=== PATIENT | male | born 1965 | race Caucasian/White ===

== ENCOUNTER 2018-12-12 14:21 | Inpatient (IN) ==
[2018-12-12] MEDS ORDERED: *HR* HYDROmorphone (PF) 1 MG/ML SYRINGE IVP ONE ×2 (15:27→18:49)
[2018-12-12] MEDS ORDERED: Dexamethasone 4 MG/ML VIAL IVP ONE (18:49)
[2018-12-12 20:19] LABS: Hematocrit 52.8 % (37.5-50.1); Hemoglobin 17.5 g/dL (12.9-16.9); Immature Platelets 3.3 % (1.1-6.1); Mean Corpuscular HGB Conc 33.1 g/dL (31.6-35.5); Mean Corpuscular Hemoglobin 27.9 pg (28.0-33.3); Mean Corpuscular Volume 84.1 fL (83.0-100.0); Mean Platelet Volume 9.6 fL (9.4-12.4); Red Blood Count 6.28 M/mcL (4.19-5.50); Red Cell Distribution Width 13.1 % (11.5-14.5); White Blood Count 8.8 K/mcL (4.3-11.1)
[2018-12-12 20:41] LABS: BUN/Creatinine Ratio 14 (6-26); Blood Urea Nitrogen 14 mg/dL (6-20); Calcium 9.6 mg/dL (8.6-10.3); Carbon Dioxide 25 mEq/L (23-29); Chloride 102 mEq/L (98-107); Glucose 141 mg/dL (70-105); Osmolality,Calculated 285 (280-300); Potassium 4.5 mEq/L (3.5-5.1); Sodium 136 mEq/L (136-145); eGFR For African Americans > 60 (> 60); eGFR For Non-African Americans > 60 (> 60)
[2018-12-12] MEDS ORDERED: Naloxone 0.4 MG/ML INJ IVP PRN (21:11)
[2018-12-12] MEDS: *HR* HYDROmorphone (PF) 1 MG/ML SYRINGE IVP PRN (23:31)
[2018-12-13] MEDS: *HR* HYDROmorphone (PF) 1 MG/ML SYRINGE IVP PRN ×3 (04:29→12:17)
[2018-12-13] MEDS: *HR* Heparin 5,000 UNIT/ML VIAL SQ SCH ×2 (04:29→17:43)
[2018-12-13 05:57] LABS: Hematocrit 51.3 % (37.5-50.1); Mean Corpuscular HGB Conc 33.1 g/dL (31.6-35.5); Mean Corpuscular Hemoglobin 28.4 pg (28.0-33.3); Mean Corpuscular Volume 85.6 fL (83.0-100.0); Mean Platelet Volume 9.9 fL (9.4-12.4); Platelet Count 281 K/mcL (140-400); Red Blood Count 5.99 M/mcL (4.19-5.50); Red Cell Distribution Width 13.1 % (11.5-14.5); White Blood Count 9.5 K/mcL (4.3-11.1)
[2018-12-13 06:03] LABS: Prothrombin Time 11.1 Seconds (9.4-12.1)
[2018-12-13 06:06] LABS: Activated Partial Thrombo Time 31.7 Seconds (26.0-36.0)
[2018-12-13 06:18] LABS: BUN/Creatinine Ratio 18 (6-26); Blood Urea Nitrogen 18 mg/dL (6-20); Calcium 9.7 mg/dL (8.6-10.3); Carbon Dioxide 25 mEq/L (23-29); Chloride 103 mEq/L (98-107); Glucose 157 mg/dL (70-105); Osmolality,Calculated 289 (280-300); Potassium 4.3 mEq/L (3.5-5.1); Sodium 137 mEq/L (136-145); eGFR For African Americans > 60 (> 60); eGFR For Non-African Americans > 60 (> 60)
[2018-12-13] MEDS ORDERED: *HR* HYDROmorphone 2 MG TABLET PO ONE (23:35)
[2018-12-14] MEDS: *HR* Heparin 5,000 UNIT/ML VIAL SQ SCH ×2 (05:09→17:09)
[2018-12-14] MEDS ORDERED: tiZANidine 4 MG TABLET PO ONE (05:32)
[2018-12-14] MEDS: *HR* OxyCODONE Immed Rel 5 MG TABLET PO PRN ×3 (07:50→22:42)
[2018-12-14] MEDS: predniSONE 20 MG TABLET PO SCH (10:33)
[2018-12-14] MEDS: Ketorolac 15 MG/ML VIAL IVP SCH ×3 (12:12→23:54)
[2018-12-15] MEDS: *HR* Heparin 5,000 UNIT/ML VIAL SQ SCH ×2 (05:25→17:50)
[2018-12-15] MEDS: Ketorolac 15 MG/ML VIAL IVP SCH ×3 (05:25→17:48)
[2018-12-15] MEDS: *HR* OxyCODONE Immed Rel 5 MG TABLET PO PRN (08:37)
[2018-12-15] MEDS: predniSONE 20 MG TABLET PO SCH (08:37)
[2018-12-15] MEDS: Sennosides/Docusate Sodium TABLET PO SCH (21:20)
[2018-12-16] MEDS: Ketorolac 15 MG/ML VIAL IVP SCH ×3 (00:07→11:32)
[2018-12-16] MEDS: *HR* Heparin 5,000 UNIT/ML VIAL SQ SCH ×2 (05:57→18:37)
[2018-12-16] MEDS: predniSONE 20 MG TABLET PO SCH (08:32)
[2018-12-16] MEDS: Sennosides/Docusate Sodium TABLET PO SCH ×2 (08:32→20:58)
[2018-12-16] MEDS ORDERED: Lactulose Oral Soln 20 GM/30 ML UDC PO PRN (14:49)
[2018-12-16] MEDS: *HR* OxyCODONE ER (12 HR) 10 MG TABLET PO SCH (18:37)
[2018-12-16] MEDS: *HR* OxyCODONE Immed Rel 15 MG TABLET PO PRN (20:57)
[2018-12-17] MEDS: *HR* Heparin 5,000 UNIT/ML VIAL SQ SCH ×2 (06:02→17:48)
[2018-12-17] MEDS: *HR* OxyCODONE ER (12 HR) 10 MG TABLET PO SCH ×2 (06:02→17:48)
[2018-12-17 07:08] LABS: Hematocrit 50.9 % (37.5-50.1); Hemoglobin 16.6 g/dL (12.9-16.9); Mean Corpuscular HGB Conc 32.6 g/dL (31.6-35.5); Mean Platelet Volume 9.7 fL (9.4-12.4); Platelet Count 266 K/mcL (140-400); Red Blood Count 5.92 M/mcL (4.19-5.50); Red Cell Distribution Width 13.1 % (11.5-14.5); White Blood Count 9.8 K/mcL (4.3-11.1)
[2018-12-17 07:27] LABS: BUN/Creatinine Ratio 22 (6-26); Blood Urea Nitrogen 26 mg/dL (6-20); Calcium 9.5 mg/dL (8.6-10.3); Carbon Dioxide 30 mEq/L (23-29); Chloride 98 mEq/L (98-107); Glucose 128 mg/dL (70-105); Osmolality,Calculated 294 (280-300); Potassium 4.1 mEq/L (3.5-5.1); Sodium 139 mEq/L (136-145); eGFR For African Americans > 60 (> 60); eGFR For Non-African Americans > 60 (> 60)
[2018-12-17] MEDS: Sennosides/Docusate Sodium TABLET PO SCH ×2 (08:32→21:01)
[2018-12-17] MEDS: predniSONE 20 MG TABLET PO SCH (08:33)
[2018-12-17] MEDS: *HR* OxyCODONE Immed Rel 15 MG TABLET PO PRN ×2 (12:59→23:17)
[2018-12-18] MEDS: *HR* OxyCODONE ER (12 HR) 10 MG TABLET PO SCH ×2 (05:43→17:29)
[2018-12-18] MEDS: *HR* Heparin 5,000 UNIT/ML VIAL SQ SCH ×2 (05:43→17:29)
[2018-12-18] MEDS: Sennosides/Docusate Sodium TABLET PO SCH ×2 (07:46→21:13)
[2018-12-18] MEDS: predniSONE 20 MG TABLET PO SCH (07:50)
[2018-12-18] MEDS: *HR* OxyCODONE Immed Rel 15 MG TABLET PO PRN ×2 (07:51→22:00)
[2018-12-19] MEDS: *HR* OxyCODONE ER (12 HR) 10 MG TABLET PO SCH ×2 (05:40→18:14)
[2018-12-19] MEDS: *HR* Heparin 5,000 UNIT/ML VIAL SQ SCH ×2 (05:40→18:14)
[2018-12-19] MEDS: Sennosides/Docusate Sodium TABLET PO SCH ×2 (07:33→19:39)
[2018-12-19] MEDS: predniSONE 20 MG TABLET PO SCH (07:40)
[2018-12-19] MEDS: Gabapentin 300 MG CAPSULE PO SCH ×3 (15:18→20:43)
[2018-12-19] MEDS: *HR* OxyCODONE Immed Rel 15 MG TABLET PO PRN (20:46)
[2018-12-20] MEDS: *HR* Heparin 5,000 UNIT/ML VIAL SQ SCH ×2 (05:53→18:58)
[2018-12-20] MEDS: *HR* OxyCODONE ER (12 HR) 10 MG TABLET PO SCH ×2 (05:53→18:57)
[2018-12-20] MEDS: predniSONE 20 MG TABLET PO SCH (08:57)
[2018-12-20] MEDS: Gabapentin 300 MG CAPSULE PO SCH ×3 (08:57→22:22)
[2018-12-20] MEDS: Sennosides/Docusate Sodium TABLET PO SCH ×2 (08:57→22:21)
[2018-12-21] MEDS: *HR* Heparin 5,000 UNIT/ML VIAL SQ SCH (05:09)
[2018-12-21] MEDS: *HR* OxyCODONE ER (12 HR) 10 MG TABLET PO SCH (05:09)
[2018-12-21] MEDS: Sennosides/Docusate Sodium TABLET PO SCH (08:56)
[2018-12-21] MEDS: Gabapentin 300 MG CAPSULE PO SCH ×2 (08:56→15:21)
[2018-12-21] MEDS: predniSONE 20 MG TABLET PO SCH (08:57)
[2018-12-21 11:15] LABS: Mean Corpuscular HGB Conc 33.3 g/dL (31.6-35.5); Mean Corpuscular Volume 87.3 fL (83.0-100.0); Mean Platelet Volume 9.7 fL (9.4-12.4); Platelet Count 274 K/mcL (140-400); Red Cell Distribution Width 13.2 % (11.5-14.5); White Blood Count 10.9 K/mcL (4.3-11.1)
[2018-12-21 11:16] LABS: Hemoglobin 18.3 g/dL (12.9-16.9)
[2018-12-21 11:33] LABS: BUN/Creatinine Ratio 23 (6-26); Blood Urea Nitrogen 26 mg/dL (6-20); Calcium 9.2 mg/dL (8.6-10.3); Carbon Dioxide 28 mEq/L (23-29); Chloride 100 mEq/L (98-107); Glucose 127 mg/dL (70-105); Osmolality,Calculated 288 (280-300); Sodium 136 mEq/L (136-145); eGFR For African Americans > 60 (> 60); eGFR For Non-African Americans > 60 (> 60)
[2018-12-21 11:48] VITALS: BP 144/83
[2018-12-22] MEDS ORDERED: predniSONE 20 MG TABLET PO SCH (09:00)
== END 2018-12-21 16:16 | DRG 552 ==
LOC: EMEROOARM 14:21 → 3BNU 14:21 → SUATTDRO 19:31 → 3BNU 20:33
PROVIDERS: ADMIT Internal Medicine; ATTEND Family Medicine